=== PATIENT | male | born 1930 | race Caucasian/White ===

== ENCOUNTER 2019-01-29 18:09 | Emergency (ER) | payer MEDICARE ==
--- NOTE | 2019-01-29 19:09 | CT ---
Head CT without contrast 01/29/2019: COMPARISON: 09/12/2018 HISTORY: Injury, trauma, pain TECHNIQUE: Axial CT imaging at 5 mm intervals from vertex through skull base without contrast FINDINGS: The imaged paranasal sinuses and mastoid air cells are well aerated. There is no displaced calvarial fracture noted. There is atherosclerotic calcification of the cavernous carotid arteries. There is moderate diffuse c erebral volume loss. There is a small focal area of scalp swelling in the left frontal region. No intracranial hemorrhage, midline shift, or mass effect. IMPRESSION: Mild left frontal scalp swelling. No associated fracture or intracranial hemorrhage.
[2019-01-29] MEDS ORDERED: Bacitracin Zinc 1 Packet ONE (19:20)
== END 2019-01-29 19:24 ==
LOC: NAV ERS 18:09
DX: S00.81XA Abrasion of other part of head, initial encounter (principal); E03.9 Hypothyroidism, unspecified; N40.0 Benign prostatic hyperplasia without lower urinary tract symptoms; E78.5 Hyperlipidemia, unspecified; I10 Essential (primary) hypertension; G30.9 Alzheimer's disease, unspecified; F02.80 Dementia in other diseases classified elsewhere, unspecified severity, without behavioral disturbance, psychotic disturbance, mood disturbance, and anxiety; Z79.899 Other long term (current) drug therapy; W22.8XXA Striking against or struck by other objects, initial encounter
CPT/HCPCS: 70450